=== PATIENT | male | born 1935 | race Caucasian/White ===

== ENCOUNTER 2017-02-01 12:03 | Emergency (ER) | payer MEDICARE, OTHER ==
[~2017-02-01] VITALS: Ht 177.8 cm; Wt 88.4 kg
[~2017-02-01 12:03] MED LIST changes: -LEVO500T2 PO
--- OUTSIDE RECORDS SUMMARY | 2017-02-01 12:08 | XMS REPORT | Continuity of Care Document ---
Author Author [facility] Organization [facility] Address Unknown Phone Unavailable Care Team Providers Care Tacking Stitch Remover Name Role Phone Nishi CrouchMendezu PCP [phone] Source Comments Some departments are not documenting in the electronic medical record. If you do not see the information that you expected, contact Release of Information in the Health Information Management department at [phone] for further assistance in locating additional records.[facility] Active Allergies and Adverse Reactions No [...] Taken Blood Pressure 138/88 10/28/2016 12:49 PM MUSIC JOURNALIST Pulse 72 10/28/2016 12:49 PM MUSIC JOURNALIST Temperature 35.9 C (96.6 F) 10/28/2016 11:47 AM MUSIC JOURNALIST Respiratory Rate 16 06/19/2012 11:30 PM CDT Height 1.753 m (5' 9") 09/29/2016 1:27 PM CDT Weight 108.9 kg (240 lb 1.3 oz) 10/28/2016 10:31 AM MUSIC JOURNALIST Body Mass Index 35.44 10/28/2016 10:31 AM MUSIC JOURNALIST Oxygen Saturation 96% 10/28/2016 12:49 PM MUSIC JOURNALIST Plan of Care Date Type Specialty Providers Description 04/27/2017 Appointment Urology Johnny Vera PA-C [address] [facility] [address] [place] [address] [phone] (Fax) 05/05/2017 Surgery Guevara Gonzalez MD CYSTOSCOPY INSERTION [address] [facility] [place] [address] [place] [address] [phone] (Fax) Health Maintenance Due Date Last Done Comments Physical (Comprehensive) 1942 Exam Pertussis Vaccine 1944 Tetanus Vaccine 1950 Shingles Vaccine 1993 Prevnar/Pneumovax (#1) 1998 Influenza Vaccine 07/29/2016 Results from Last 3 Months Not on file
[2017-02-01] MEDS ORDERED: NS IV 1000 ML 1,000 ML IV SCH (12:15)
--- NOTE | 2017-02-01 12:15 | ED General ---
General Stated Complaint: LETHARGIC Source of Information: Patient Exam Limitations: No Limitations History of Present Illness Time Seen by Provider: 12:12 Initial Comments To ER as a rapid response from outpatient radiology. Family had difficulty arousing him getting him to respond and get out of the car to come in to have his PET scan today. Patient has history of colorectal cancer likely secondary to his 40 year history of Crohn's disease. Had a colectomy done by Dr. sullivan at [facility] in December of this year. Over the past week he's had increased weakness, increased weight loss and elevated liver enzymes which is what prompted the PET scan from my understanding. He also reports increasing shortness of breath. He does have a history of atrial fibrillation and was taken off of his Coumadin 2 weeks ago and is only on full dose aspirin currently. Not on chemotherapy. He sees Dr. Martinez at [facility] for cardiology and primary care is Dr. Browning. Upon arrival to the emergency room patient is alert though lethargic and states "can't you just let me with dignity". He denies pain anywhere. Blood pressure is low on arrival and states that when he was at [facility] 2 weeks ago (ultimately discharged to the skilled unit at [facility] for he was discharged from one week ago) his blood pressure was alarmingly low as well. He was also treated for left lung pneumonia at [facility] skilled unit Timing/Duration: 1 Week Severity: Moderate Associated Systoms: No Chest Pain, No Cough, No Fever/Chills, Malaise Weakness Allergies and Home Medications Allergies Coded Allergies: No Known Drug Allergies (Unverified , 05/24/11) Home Medications Acetaminophen 325 Mg Tablet 650 MG PO PRN (Reported) Aspirin 81 Mg Tabec 81 MG PO DAILY (Reported) Azathioprine 50 Mg Tab 150 MG PO DAILY (Reported) Dabigatran Etexilate Mesylate 150 Mg Capsule 150 MG PO BID (Reported) Docusate Sodium 100 Mg Tablet 100 MG PO BID (Reported) Finasteride 5 Mg Tablet 5 MG PO DAILY (Reported) Garlic 400 Mg Tablet.dr 400 MG PO DAILY (Reported) Levofloxacin 500 Mg Tablet 7Days 500 MG PO DAILY Prescribed by: BRENDEN HENDRICKS on 02/01/17 1355 Lutein 10 Mg Tablet 10 MG PO BID (Reported) Mesalamine 400 Mg Tab 3,200 MG PO DAILY (Reported) Metoprolol Succinate 50 Mg Tab 50 MG PO BID (Reported) Multivit, Iron, Min No. 8, Fa 1 Each Tablet 1 TAB PO DAILY (Reported) [place]-3 Fatty Acids/Fish Oil 1 Each Capsule 1,000 MG PO BID (Reported) Ramipril 2.5 Mg Cap 2.5 MG PO DAILY (Reported) Simvastatin 40 Mg Tablet 40 MG PO BID (Reported) Constitutional: see HPINo chills, No fever EENTM: see HPI Respiratory: no symptoms reported Cardiovascular: no symptoms reported Genitourinary: no symptoms reported Musculoskeletal: no symptoms reported Skin: no symptoms reported Psychiatric/Neurological: No Symptoms Reported Hematologic/Lymphatic: No Symptoms Reported Immunological/Allergic: no symptoms reported Past Mxqxist-Yucaud-Susjcn Hx Respiratory Hx Respiratory Disorders: No Cardiovascular Hx Cardiac Disorders: Yes (cabg) Neurological Hx Neurological Disorders: No Reproductive System Hx Reproductive Disorders: No Genitourinary Hx Genitourinary Disorders: Yes (RIGHT URETERAL OBSTRUCTION) Gastrointestinal Hx Gastrointestinal Disorders: Yes (CROHNS) Musculoskeletal Hx Musculoskeletal Disorders: No Endocrine Hx Endocrine Disorders: No HEENT HX ENT Disorders: No Psychosocial Hx Psychiatric Problems: No Blood Transfusions Hx Blood Disorders: No Physical Exam Vital Signs Vital Sign - Last 12Hours 02/01/17 12:15 Temp 97.0 Pulse 66 Resp 18 B/P 98/56 Pulse Ox 97 O2 Delivery Room Air Capillary Refill : General Appearance: No Apparent Distress WD/WN Eyes: Bilateral Eye EOMI, Bilateral Eye Normal Inspection, Bilateral Eye PERRL HEENT: PERRL/EOMI TMs Normal Neck: Full Range of Motion Normal Inspection Respiratory: No Accessory Muscle Use No Respiratory Distress Crackles (left lower lobe) Decreased Breath Sounds Cardiovascular: No Edema Normal Peripheral Pulses Irregularly Irregular Gastrointestinal: Non Tender Soft Extremity: Normal Capillary Refill Normal Inspection Neurologic/Psychiatric: Alert Oriented x3 No Motor/Sensory Deficits Skin: Normal Color Warm/Dry Progress/Results/Core Measures Results/Orders Lab Results Laboratory Tests Test 02/01/17 12:16 02/01/17 12:46 Range/Units Activated Partial Thromboplast Time 35 24-35 SEC Alanine Aminotransferase (ALT/SGPT) 63 H 0-55 U/L Albumin 4.3 3.2-4.5 G/DL Alkaline Phosphatase 773 H 40-136 U/L Anion Gap 17 H 5-14 MMOL/L Aspartate Amino Transf (AST/SGOT) 137 H 5-34 U/L B-Type Natriuretic Peptide 240.2 H <100.0 PG/ML BUN/Creatinine Ratio 18 Basophils # (Auto) 0.1 0.0-0.1 10^3/uL Basophils (%) (Auto) 1 0-10 % Blood Urea Nitrogen 37 H 7-18 MG/DL Calcium Level 10.4 H 8.5-10.1 MG/DL Carbon Dioxide Level 18 L 21-32 MMOL/L Chloride Level 100 98-107 MMOL/L Creatinine 2.03 H 0.60-1.30 MG/DL Eosinophils # (Auto) 0.6 H 0.0-0.3 10^3/uL Eosinophils (%) (Auto) 7 0-10 % Estimat Glomerular Filtration Rate 32 Glucose Level 101 70-105 MG/DL Hematocrit 40 40-54 % Hemoglobin 12.3 L 13.3-17.7 G/DL INR Comment 1.0 0.8-1.4 Lipase 65 8-78 U/L Lymphocytes # (Auto) 0.9 L 1.0-4.0 X 10^3 Lymphocytes (%) (Auto) 11 L 12-44 % Mean Corpuscular Hemoglobin 24 L 25-34 PG Mean Corpuscular Hemoglobin Concent 31 L 32-36 G/DL Mean Corpuscular Volume 77 L 80-99 FL Mean Platelet Volume 9.9 7.4-10.4 FL Monocytes # (Auto) 0.8 0.0-1.0 X 10^3 Monocytes (%) (Auto) 10 0-12 % Neutrophils # (Auto) 5.8 1.8-7.8 X 10^3 Neutrophils (%) (Auto) 72 42-75 % Platelet Count 519 H 130-400 10^3/uL Potassium Level 5.4 H 3.6-5.0 MMOL/L Prothrombin Time 12.8 12.2-14.7 SEC Red Blood Count 5.19 4.35-5.85 10^6/uL Red Cell Distribution Width 21.6 H 10.0-14.5 % Sodium Level 135 135-145 MMOL/L Total Bilirubin 1.4 H 0.1-1.0 MG/DL Total Protein 8.5 H 6.4-8.2 G/DL Troponin I < 0.30 <0.30 NG/ML White Blood Count 8.1 4.3-11.0 10^3/uL Lactic Acid Level 1.18 0.50-2.00 MMOL/L My Orders Orders-BRENDEN HENDRICKS APRN Cbc With Automated Diff (02/01/17 12:11) Comprehensive Metabolic Panel (02/01/17 12:11) Lipase (02/01/17 12:11) Ua Culture If Indicated (02/01/17 12:11) Saline Lock/Iv-Start (02/01/17 12:11) Blood Culture (02/01/17 12:11) Chest 1 View, Ap/Pa Only (02/01/17 12:11) Lactic Acid Analyzer (02/01/17 12:11) Ns Iv 1000 Ml (Sodium Chloride 0.9%) (02/01/17 12:15) Protime With Inr (02/01/17 12:23) Partial Thromboplastin Time (02/01/17 12:23) Piperacillin Sodium/Tazobactam (Zosyn Vi (02/01/17 13:00) BNP (02/01/17 12:55) Troponin I (02/01/17 12:55) Us Hepatic (Liver)[id number] (02/01/17 13:00) Medications Given in ED Current Medications Medications Dose Ordered Sig/Edgar Route Start Time Stop Time Status Last Admin Dose Admin Piperacillin Sod/ Tazobactam Sod/ Sodium Chloride 100 ml @ 200 mls/hr ONCE ONCE IV 02/01/17 13:00 02/01/17 13:29 DC 02/01/17 13:27 200 MLS/HR Vital Signs/I&O Vital Sign - Last 12Hours 02/01/17 02/01/17 12:15 14:05 Temp 97.0 97.0 Pulse 66 55 Resp 18 16 B/P 98/56 Pulse Ox 97 97 O2 Delivery Room Air Diagnostic Imaging Diagonstic Imaging: Ultrasound Comments NAME: ROB CURIEL MED REC#: [id number] PT STATUS: REG ER : 1935 PHYSICIAN: BRENDEN HENDRICKS APRN ADMIT DATE: 02/01/17/ER Draft Date of Exam:02/01/17 US HEPATIC (LIVER)[id number] INDICATION: Abnormal liver function test, history of colorectal cancer. COMPARISON: None. DISCUSSION: Sonographic evaluation of the right upper quadrant was performed. There are innumerable solid masses noted diffusely throughout the liver, consistent with metastatic disease. Suspect 4 mm gallbladder polyp. No shadowing stone identified within the gallbladder. No evidence of gallbladder wall thickening or pericholecystic fluid. No evidence of biliary duct dilatation. The common bile duct is normal measuring 0.3 cm. The pancreas appears normal as visualized. The right kidney appears normal in echotexture and size without evidence of hydronephrosis or renal mass. 1 cm benign-appearing cyst incidentally noted within the right kidney. The right kidney measures 12 cm. There is no ascites or abnormal bowel loops identified. No sonographic Hernandez sign was reported. IMPRESSION: 1. Innumerable tumors noted diffusely throughout the liver, consistent with metastatic disease. Dictated on workstation # [id number] Dict: 02/01/17 1344 Trans: 02/01/17 1348 [facility] [id number] Interpreted by: KAREN PRIDE MD Electronically signed by: Departure Communication Progress Notes I did update the patient and family including daughter and son on the liver metastasis. Patient reports that he is at peace with this and his goal would be to remain without pain treat he has no pain currently. He does not want to stay in the hospital. I discussed this with Dr. Castillo who agrees to see him in the cancer center today as soon as he is discharged from here. Impression Impression: Primary Impression: Metastatic colon cancer to liver Additional Impressions: Weakness persistent left lower lobe pneumonia Disposition: HOME, SELF-CARE Condition: Stable Departure-Patient Inst. Decision time for Depature: 13:54 Referrals: NO,LOCAL PHYSICIAN (PCP/Family) Primary Care Physician Patient Instructions: Colon and Rectal Cancer Add. Discharge Instructions: 1. Antibiotics as directed 2. Go directly from here to the cancer Center where Dr. Ashley will see you Scripts Levofloxacin (Levaquin)500 Mg Ablmiy244 Mg PO DAILY 7 Days Prov:BRENDEN HENDRICKS APRN 02/01/17 Copy Copies To 1: PHIL CASTILLO MD Copies To 2: ANIVAL BROWNING MD, PETER J APRN Feb 01, 2017 12:15
[2017-02-01 12:27] LABS: BASOPHILS # (AUTO) 0.1 10^3/uL (0.0-0.1); BASOPHILS % (AUTO) 1 % (0-10); EOSINOPHILS # (AUTO) 0.6 10^3/uL (0.0-0.3); EOSINOPHILS % (AUTO) 7 % (0-10); LYMPHOCYTES # (AUTO) 0.9 X 10^3 (1.0-4.0); LYMPHOCYTES % (AUTO) 11 % (12-44); MEAN CORPUSCULAR HEMOGLOBIN 24 PG (25-34); MEAN CORPUSCULAR HGB CONC 31 G/DL (32-36); MEAN CORPUSCULAR VOLUME 77 FL (80-99); MEAN PLATELET VOLUME 9.9 FL (7.4-10.4); MONOCYTES # (AUTO) 0.8 X 10^3 (0.0-1.0); MONOCYTES % (AUTO) 10 % (0-12); NEUTROPHILS # (AUTO) 5.8 X 10^3 (1.8-7.8); NEUTROPHILS % (AUTO) 72 % (42-75); PLATELET COUNT 519 10^3/uL (130-400); RED BLOOD COUNT 5.19 10^6/uL (4.35-5.85); RED CELL DISTRIBUTION WIDTH 21.6 % (10.0-14.5); WHITE BLOOD COUNT 8.1 10^3/uL (4.3-11.0)
[2017-02-01 12:36] LABS: PROTHROMBIN TIME PATIENT 12.8 SEC (12.2-14.7)
[2017-02-01 12:46] LABS: ALBUMIN 4.3 G/DL (3.2-4.5); BILIRUBIN,TOTAL 1.4 MG/DL (0.1-1.0); CALCIUM 10.4 MG/DL (8.5-10.1); CREATININE SERUM 2.03 MG/DL (0.60-1.30); POTASSIUM 5.4 MMOL/L (3.6-5.0); TOTAL PROTEIN 8.5 G/DL (6.4-8.2)
--- NOTE | 2017-02-01 12:48 | Diagnostic Imaging Report ---
INDICATION: Generalized weakness. DISCUSSION: Single portable upright view of the chest was obtained, comparison 10/30/2010. Patchy opacities within the left lung base could represent atelectasis and/or pneumonia. Suspect trace right pleural effusion. Normal heart size. Median sternotomy is stable. Antecedent granulomatous disease is again noted, benign. IMPRESSION: 1. Left lung base opacities, atelectasis and/or pneumonia. Suspect additional trace left pleural effusion. Dictated by: Dictated on workstation # [id number]
[2017-02-01] MEDS ORDERED: PIPERACILLIN SODIUM/TAZOBACTAM 4.5 GM in NS (IVPB) 100 ML IV ONE (13:00)
--- NOTE | 2017-02-01 13:49 | Diagnostic Imaging Report ---
INDICATION: Abnormal liver function test, history of colorectal cancer. COMPARISON: None. DISCUSSION: Sonographic evaluation of the right upper quadrant was performed. There are innumerable solid masses noted diffusely throughout the liver, consistent with metastatic disease. Suspect 4 mm gallbladder polyp. No shadowing stone identified within the gallbladder. No evidence of gallbladder wall thickening or pericholecystic fluid. No evidence of biliary duct dilatation. The common bile duct is normal measuring 0.3 cm. The pancreas appears normal as visualized. The right kidney appears normal in echotexture and size without evidence of hydronephrosis or renal mass. 1 cm benign-appearing cyst incidentally noted within the right kidney. The right kidney measures 12 cm. There is no ascites or abnormal bowel loops identified. No sonographic Hernandez sign was reported. IMPRESSION: 1. Innumerable tumors noted diffusely throughout the liver, consistent with metastatic disease. Dictated by: Dictated on workstation # [id number]
[2017-02-01] MEDS ORDERED: LEVO500T2 PO (13:55)
[2017-02-01 14:05] VITALS: BP 112/78
== END 2017-02-01 14:05 | disposition home or self-care (01) ==
LOC: EDUNIT# 12:03 → ER 12:04
DX: C19 Malignant neoplasm of rectosigmoid junction (principal); C78.7 Secondary malignant neoplasm of liver and intrahepatic bile duct; J18.9 Pneumonia, unspecified organism; I48.2 Chronic atrial fibrillation; R74.8 Abnormal levels of other serum enzymes; Z90.49 Acquired absence of other specified parts of digestive tract; Z79.82 Long term (current) use of aspirin; Z79.899 Other long term (current) drug therapy
CPT/HCPCS: 36415; 71010; 76705; 80053; 83605; 83690; 83880; 84484; 85025; 85610; 85730; 87040; 96361; 96365

== ENCOUNTER 2017-02-01 14:03 | Outpatient (RCR) | payer MEDICARE, OTHER ==
[2017-01-28 10:00] LABS: BASOPHILS % (AUTO) 0 % (0-10); EOSINOPHILS # (AUTO) 0.5 10^3/uL (0.0-0.3); EOSINOPHILS % (AUTO) 6 % (0-10); LYMPHOCYTES # (AUTO) 0.8 X 10^3 (1.0-4.0); LYMPHOCYTES % (AUTO) 9 % (12-44); MEAN CORPUSCULAR HEMOGLOBIN 24 PG (25-34); MEAN CORPUSCULAR HGB CONC 31 G/DL (32-36); MEAN CORPUSCULAR VOLUME 76 FL (80-99); MEAN PLATELET VOLUME 9.8 FL (7.4-10.4); MONOCYTES # (AUTO) 0.8 X 10^3 (0.0-1.0); MONOCYTES % (AUTO) 9 % (0-12); NEUTROPHILS # (AUTO) 6.1 X 10^3 (1.8-7.8); NEUTROPHILS % (AUTO) 75 % (42-75); PLATELET COUNT 614 10^3/uL (130-400); RED BLOOD COUNT 4.83 10^6/uL (4.35-5.85); RED CELL DISTRIBUTION WIDTH 20.5 % (10.0-14.5); WHITE BLOOD COUNT 8.2 10^3/uL (4.3-11.0)
--- OUTSIDE RECORDS SUMMARY | 2017-01-28 10:09 | XMS REPORT | Continuity of Care Document ---
Author Author [facility] Organization [facility] Address Unknown Phone Unavailable Care Team Providers Care Napper Fixer Name Role Phone Nishi CrouchMendezu PCP [phone] Source Comments Some departments are not documenting in the electronic medical record. If you do not see the information that you expected, contact Release of Information in the Health Information Management department at [phone] for further assistance in locating additional records.[facility] Active Allergies and Adverse Reactions No Known Allergies Current Medications Prescription Sig. Disp. Refills Start End Date Status Date metoprolol (LOPRESSOR) Take 50 mg by mouth Active 100 mg tablet daily. Lutein 20 mg Cap Take 1 Cap by mouth Active daily. LACTOBACILLUS RHAMNOSUS Take 1 Cap by mouth Active GG (PROBIOTIC PO) daily. azaTHIOprine (IMURAN) 50 Take 150 mg by mouth Active mg tablet every morning. Garlic 1,000 mg Cap Take 1 Cap by mouth Active daily. acetaminophen SR(+) Take 650 mg by mouth Active (TYLENOL) 650 mg tablet twice daily. furosemide (LASIX) 40 mg Take 40 mg by mouth three Active tablet times weekly. MWF potassium chloride SR Take 10 mEq by mouth Active (K-DUR) 10 mEq tablet three times weekly. MWF with lasix glucosamine(+) 500 mg tab Take 500 mg by mouth Active daily with breakfast. lisinopril (PRINIVIL; Take 10 mg by mouth Active ZESTRIL) 20 mg tablet daily. mesalamine (ASACOL HD) Take 3,200 mg by mouth Active 800 mg tablet daily. Swallow whole; do not break, chew or crush. Administer with or without food. warfarin (COUMADIN) 5 mg Take by mouth daily. 5mg Active tablet on Tue, Tue and 10mg all other days Indications: varied dosing aspirin EC 81 mg tablet Take 81 mg by mouth Active daily. Active Problems Problem Noted Date Ureteral obstruction, right 07/17/2012 Overview: H/o intermittent renal colic Renal Lasix Scan (08/28/2012): (R) T1/2=38.36 minutes (R) URS w/ Bx & Stent Placement -- 07/29/2012; Dr. Gonzalez Ureteral Bx (07/29/2012) -- Negative. Managed w/ Chronic Indwelling Ureteral Stent changed q 3-6 months. L ast Assessment & Plan: (R) Ureteral Stent Exchange -- 10/28/2016; Dr. Gonzalez Possible risks & complications of surgery including but not limited to bleeding, infection, allergic reactions, heart and blood pressure problems, ureteral injury, stent irritation, injury to contiguous structures, need for percutaneous access, and anesthesia complications including, but not limited to deep venous thrombosis, heart attack, stroke, pulmonary embolism, respiratory arrest, and . Pt demonstrates an understanding & wishes to proceed. Surgical consent signed in clinic today. UCx: pending. Imaging: [facility]. Consults: None. -- Recommended to pt to discuss w/ Pre-Anesthesia Clinic provider to consider evaluation of cardiac murmur if they determine this murmur is new & real. All questions answered to his satisfaction. Social History Tobacco Use Types Packs/Day Years Used Date Former Smoker Cigarettes 3 5 Quit: 09/26/1950 Smokeless Tobacco: Never Used Alcohol Use Drinks/Week oz/Week Comments No 0 Standard 0.0 drinks or equivalent Last Filed Vital Signs Vital Sign Reading Time Taken Blood Pressure 138/88 10/28/2016 12:49 PM SHOE REPAIRMAN Pulse 72 10/28/2016 12:49 PM SHOE REPAIRMAN Temperature 35.9 C (96.6 F) 10/28/2016 11:47 AM SHOE REPAIRMAN Respiratory Rate 16 06/19/2012 11:30 PM CDT Height 1.753 m (5' 9") 09/29/2016 1:27 PM CDT Weight 108.9 kg (240 lb 1.3 oz) 10/28/2016 10:31 AM SHOE REPAIRMAN Body Mass Index 35.44 10/28/2016 10:31 AM SHOE REPAIRMAN Oxygen Saturation 96% 10/28/2016 12:49 PM SHOE REPAIRMAN Plan of Care Date Type Specialty Providers Description 04/27/2017 Appointment Urology Johnny Vera PA-C [address] [facility] [address] [place] [address] [phone] (Fax) 05/05/2017 Surgery Guevara Gonzalez MD CYSTOSCOPY INSERTION [address] [facility] [address] [place] [address] [phone] (Fax) Health Maintenance Due Date Last Done Comments Physical (Comprehensive) 1942 Exam Pertussis Vaccine 1944 Tetanus Vaccine 1950 Shingles Vaccine 1993 Prevnar/Pneumovax (#1) 1998 Influenza Vaccine 07/29/2016 Results from Last 3 Months Not on file
[2017-01-28 10:17] LABS: ALBUMIN 4.1 G/DL (3.2-4.5); BILIRUBIN,TOTAL 1.3 MG/DL (0.1-1.0); CALCIUM 9.9 MG/DL (8.5-10.1); CREATININE SERUM 1.87 MG/DL (0.60-1.30); POTASSIUM 5.2 MMOL/L (3.6-5.0); TOTAL PROTEIN 7.4 G/DL (6.4-8.2)
[~2017-02-01 14:03] MED LIST changes: +LEVO500T2 PO
== END 2017-04-28 | disposition home or self-care (01) ==
LOC: ONC 14:03
PROVIDERS: ATTEND Internal Medicine Hematology & Oncology
DX: C19 Malignant neoplasm of rectosigmoid junction (principal); D50.9 Iron deficiency anemia, unspecified; N17.1 Acute kidney failure with acute cortical necrosis; I48.2 Chronic atrial fibrillation; I25.10 Atherosclerotic heart disease of native coronary artery without angina pectoris; R79.89 Other specified abnormal findings of blood chemistry; Z95.1 Presence of aortocoronary bypass graft; Z79.899 Other long term (current) drug therapy
CPT/HCPCS: 36415; 80053; 82378; 82728; 83540; 85025; 99214

== ENCOUNTER → 2017-02-01 | Outpatient (CLI) | payer MEDICARE, OTHER ==
[~2017-02-01] MED LIST: AC325T PO; AC500T PO; ASP81TEC PO; AZAT50TA PO; AZTH50T PO; CIPR500S2 PO; DABI150C5 PO; DOCU100T7 PO; FINA5TAB PO; GARL400T13 PO; HYOS0.1217 PO; LEVO500T2 PO; LUTE10TA PO; METO50TA7 PO; MSL400TEC PO; OMEG1CAP51 PO; PHEN200T27 PO; PROBIOTIC1 EACH PO; RMP2.5C PO; SIMV40TA2 PO; [UNRECOGNIZED DRUG - CODE] PO
--- OUTSIDE RECORDS SUMMARY | 2017-02-01 11:35 | XMS REPORT | Continuity of Care Document ---
Author Author [facility] Organization [facility] Address Unknown Phone Unavailable Care Team Providers Care Planning Aide Name Role Phone Nishi CrouchMendezu PCP [phone] Source Comments Some departments are not documenting in the electronic medical record. If you do not see the information that you expected, contact Release of Information in the Health Information Management department at [phone] for further assistance in locating additional records.[facility] Active Allergies and Adverse Reactions No Known [...] Taken Blood Pressure 138/88 10/28/2016 12:49 PM PARALLEL COMPUTING SOFTWARE ENGINEER Pulse 72 10/28/2016 12:49 PM PARALLEL COMPUTING SOFTWARE ENGINEER Temperature 35.9 C (96.6 F) 10/28/2016 11:47 AM PARALLEL COMPUTING SOFTWARE ENGINEER Respiratory Rate 16 06/19/2012 11:30 PM CDT Height 1.753 m (5' 9") 09/29/2016 1:27 PM CDT Weight 108.9 kg (240 lb 1.3 oz) 10/28/2016 10:31 AM PARALLEL COMPUTING SOFTWARE ENGINEER Body Mass Index 35.44 10/28/2016 10:31 AM PARALLEL COMPUTING SOFTWARE ENGINEER Oxygen Saturation 96% 10/28/2016 12:49 PM PARALLEL COMPUTING SOFTWARE ENGINEER Plan of Care Date Type Specialty Providers Description 04/27/2017 Appointment Urology Johnny Vera PA-C [address] [email or web address] [address] [place] [address] [phone] (Fax) 05/05/2017 Surgery Guevara Gonzalez MD CYSTOSCOPY INSERTION [address] [facility] [place] [address] [place] [address] [phone] (Fax) Health Maintenance Due Date Last Done Comments Physical (Comprehensive) 1942 Exam Pertussis Vaccine 1944 Tetanus Vaccine 1950 Shingles Vaccine 1993 Prevnar/Pneumovax (#1) 1998 Influenza Vaccine 07/29/2016 Results from Last 3 Months Not on file
== END ==
LOC: RAD 11:32
PROVIDERS: ATTEND Internal Medicine Hematology & Oncology
DX: C20 Malignant neoplasm of rectum (principal)

== ENCOUNTER 2017-02-03 12:36 | Outpatient (CLI) | payer MEDICARE, OTHER ==
[~2017-02-03] VITALS: Ht 177.8 cm; Wt 88.4 kg
--- OUTSIDE RECORDS SUMMARY | 2017-02-03 12:42 | XMS REPORT | Continuity of Care Document ---
Author Author [facility] Organization [facility] Address Unknown Phone Unavailable Care Team Providers Care Implementation Project Coordinator Name Role Phone Nishi CrouchMendezu PCP [phone] Source Comments Some departments are not documenting in the electronic medical record. If you do not see the information that you expected, contact Release of Information in the Health Information Management department at [phone] for further assistance in locating additional records.[facility] Active Allergies and Adverse Reactions No Known [...] Taken Blood Pressure 138/88 10/28/2016 12:49 PM TENTERING MACHINE OFF BEARER Pulse 72 10/28/2016 12:49 PM TENTERING MACHINE OFF BEARER Temperature 35.9 C (96.6 F) 10/28/2016 11:47 AM TENTERING MACHINE OFF BEARER Respiratory Rate 16 06/19/2012 11:30 PM CDT Height 1.753 m (5' 9") 09/29/2016 1:27 PM CDT Weight 108.9 kg (240 lb 1.3 oz) 10/28/2016 10:31 AM TENTERING MACHINE OFF BEARER Body Mass Index 35.44 10/28/2016 10:31 AM TENTERING MACHINE OFF BEARER Oxygen Saturation 96% 10/28/2016 12:49 PM TENTERING MACHINE OFF BEARER Plan of Care Date Type Specialty Providers Description 04/27/2017 Appointment Urology Johnny Vera PA-C [address] [facility] [address] [place] [address] [phone] (Fax) 05/05/2017 Surgery Guevara Gonzalez MD CYSTOSCOPY INSERTION [address] [facility] [place] [address] [place] [address] [phone] (Fax) Health Maintenance Due Date Last Done Comments Physical (Comprehensive) 1942 Exam Pertussis Vaccine 1944 Tetanus Vaccine 1950 Shingles Vaccine 1993 Prevnar/Pneumovax (#1) 1998 Influenza Vaccine 07/29/2016 Results from Last 3 Months Not on file
== END 2017-02-03 12:56 ==
LOC: PREOP 12:36
PROVIDERS: ATTEND Surgery
DX: Z01.818 Encounter for other preprocedural examination (principal); C20 Malignant neoplasm of rectum